=== PATIENT | female | born 1930 | race Caucasian/White ===

== ENCOUNTER → 2016-03-21 | Outpatient (CLI) | payer OTHER, MEDICARE ==
[2016-03-21 17:37] LABS: HEMOGLOBIN A1C 5.94 % (4.2-6.0); MEAN BLOOD GLUCOSE (CALC) 111.802 mg/dL
[2016-03-21 18:06] LABS: BUN/CREATININE RATIO 23.63 (6-20); CALCIUM 9.4 mg/dL (8.7-10.7); CREATININE 1.1 mg/dL (0.50-1.20); POTASSIUM 4.8 meq/L (3.8-5.2)
== END ==
LOC: MOB LAB 16:40
DX: E11.9 Type 2 diabetes mellitus without complications (principal); N28.9 Disorder of kidney and ureter, unspecified; G47.33 Obstructive sleep apnea (adult) (pediatric); M81.0 Age-related osteoporosis without current pathological fracture; I35.1 Nonrheumatic aortic (valve) insufficiency; E78.5 Hyperlipidemia, unspecified; Z86.010 Personal history of colon polyps
CPT/HCPCS: 36415; 80048; 83036; 99213; G0463

== ENCOUNTER → 2016-07-19 | Outpatient (CLI) | payer OTHER, MEDICARE ==
[2016-07-19 11:03] LABS: BASOPHILS # (AUTO) 0.04 10*3/UL; BASOPHILS % (AUTO) 0.6 % (0-1); EOSINOPHILS # (AUTO) 0.13 10*3/UL; EOSINOPHILS % (AUTO) 1.9 % (0-8); HEMATOCRIT 37.5 % (37.0-47.0); HEMOGLOBIN 12.4 g/dL (12.0-16.0); MEAN CORPUSCULAR HEMOGLOBIN 30.6 PG (27-31); MEAN CORPUSCULAR HGB CONC 33.1 g/dL (33-37); MEAN CORPUSCULAR VOLUME 92.6 FL (81-99); MEAN PLATELET VOLUME 9.9 FL (7.4-12.2); MONOCYTES % (AUTO) 11.9 % (5-15); NEUTROPHILS # (AUTO) 4.36 10*3/UL; NEUTROPHILS % (AUTO) 64.7 % (50-80); RED BLOOD COUNT 4.05 10^6/uL (4.20-5.40)
[2016-07-19 11:12] LABS: PLATELET MORPHOLOGY COMMENT NORMAL MORPHOLOGY (NORM); RBC MORPHOLOGY COMMENT NORMAL MORPHOLOGY (NORM); WBC MORPHOLOGY COMMENT NORMAL MORPHOLOGY (NORM)
[2016-07-19 11:14] LABS: BUN/CREATININE RATIO 26.66 (6-20); CALCIUM 9.8 mg/dL (8.7-10.7); SERUM ALBUMIN 4.1 g/dL (3.5-4.8)
[2016-07-19 14:41] LABS: HEMOGLOBIN A1C 6.01 % (4.2-6.0)
[2016-07-20 03:47] LABS: VITAMIN D 25-HYDROXY 59.9 NG/ML (30-100)
== END ==
LOC: MOB LAB 10:15
DX: E11.9 Type 2 diabetes mellitus without complications (principal); I10 Essential (primary) hypertension; E78.5 Hyperlipidemia, unspecified; E55.9 Vitamin D deficiency, unspecified; G47.33 Obstructive sleep apnea (adult) (pediatric)
CPT/HCPCS: 36415; 80053; 82306; 83036; 84443; 85025

== ENCOUNTER → 2016-08-11 | Outpatient (CLI) | payer OTHER, MEDICARE ==
--- NOTE | 2016-08-11 13:38 | DI ---
VENOUS DOPPLER ULTRASOUND OF THE LEFT LOWER EXTREMITY, 08/11/2016 1:06 PM: Clinical History: Left calf pain and swelling. Previous Exam: None. Technique: 2D real-time imaging is supplemented with color Doppler ultrasound. Compression and augmen tation maneuvers were performed. The deep venous system from the groin to the popliteal fossa is norm al. The greater saphenous vein is normal. Reading: Negative venous Doppler ultrasound of the left lower extremity for deep vein thrombosis.
== END ==
LOC: US 13:02
PROVIDERS: ATTEND Physician Assistant Surgical
DX: M79.662 Pain in left lower leg (principal); M79.89 Other specified soft tissue disorders
CPT/HCPCS: 93971